=== PATIENT | male | born 1940 | race Caucasian/White ===

== ENCOUNTER 2020-11-28 12:25 | Observation (INO) ==
[2020-11-28 13:26] LABS: Basophils % 0.4 % (0.0-0.8); Eosinophils # 0.1 10*3/uL (0.0-0.87); Eosinophils % 1.1 % (0.00-10.9); Hematocrit 30.9 VOL% (42.0-52.0); Hemoglobin 10.7 GM/DL (14.0-18.0); Immature Granulocytes % 1.7 %; Immature Granulocytes Absolute 0.08 #; Lymphocytes # 0.7 10*3/uL (1.4-4.0); Lymphocytes % 14.6 % (21.2-54.2); Mean Corpuscular HGB Conc 34.6 GM/DL (32-36); Mean Corpuscular Volume 93.6 FL (87-102); Monocytes % 16.9 % (1.7-12.7); Neutrophils % 65.3 % (38.7-73.9); Platelet Count 243 T/CUMM (130-400); Red Cell Distribution Width 12.8 % (9.3-17.3); White Blood Count 4.7 T/CUMM (4-12)
[2020-11-28 13:37] LABS: Bilirubin,Urine Negative (Negative); Blood, Urine Negative (Negative); Glucose,Urine (UA) Negative (Negative); Ketones,Urine Negative (Negative); Nitrite,Urine Negative (Negative); Protein,Urine Negative; RBC,Urine 1 /HPF (0-4); Urine Appearance CLEAR (Clear); Urine Color Yellow (Yellow); Urine Specific Gravity 1.006 (1.001-1.035); Urine Urobilinogen < 2.0 EU/DL (0.2-1.0)
[2020-11-28 13:45] LABS: Albumin 2.9 G/DL (3.4-5.0); Bilirubin,Total 0.9 MG/DL (0.20-1.00); Calcium 8.3 MG/DL (8.5-10.1); Osmolality,Calculated 251.5 MOS/KG (273-304); Potassium 4.1 MMOL/L (3.5-5.1); Total Protein 6.4 G/DL (6.4-8.2)
[2020-11-28 13:58] LABS: INR 1.6; PT Patient Result 17.8 SECS (10.5-12.0); Partial Thromboplastin Time 41.7 SECS (23.9-33.8)
[2020-11-28 14:02] LABS: Lymphocytes 13 % (20-55)
[2020-11-28 14:05] LABS: Anisocytosis 1+
[2020-11-28 14:06] LABS: Macrocytosis 1+
[2020-11-28 14:07] LABS: Ovalocytes Few; Reactive Lymphocytes Slight
[2020-11-28 14:08] LABS: Platelet Estimate Normal
[2020-11-28 14:32] LABS: Segmented Neutrophils 72 % (50-85)
[2020-11-28 14:33] LABS: Total Cells Counted 100
[2020-11-28] MEDS ORDERED: GLUCAGON 1 MG VIAL IM PRN (16:07)
[2020-11-28] MEDS ORDERED: ONDANSETRON 4 MG/2 ML VIAL IV PRN (16:07)
[2020-11-28] MEDS ORDERED: ACETAMINOPHEN 325 MG TABLET PO PRN (16:07)
[2020-11-28] MEDS ORDERED: DEXTROSE 50% 25 GM/50 ML VIAL IV PRN (16:07)
[2020-11-28] MEDS: SODIUM CHLORIDE 0.9% 1,000 ML IV SCH (19:15)
[2020-11-29 05:35] LABS: Basophils % 0.2 % (0.0-0.8); Eosinophils # 0.1 10*3/uL (0.0-0.87); Hematocrit 30.1 VOL% (42.0-52.0); Hemoglobin 10.4 GM/DL (14.0-18.0); Immature Granulocytes % 2.4 %; Immature Granulocytes Absolute 0.12 #; Lymphocytes # 0.8 10*3/uL (1.4-4.0); Lymphocytes % 16.4 % (21.2-54.2); Mean Corpuscular HGB Conc 34.6 GM/DL (32-36); Mean Corpuscular Volume 93.5 FL (87-102); Platelet Count 252 T/CUMM (130-400); Red Blood Count 3.22 MC/CUMM (3.8-5.5); Red Cell Distribution Width 12.4 % (9.3-17.3); White Blood Count 4.9 T/CUMM (4-12)
[2020-11-29 06:03] LABS: Eosinophils 2 % (0-10); Hypochromasia 1+; Lymphocytes 17 % (20-55); Microcytosis 1+; Ovalocytes Slight; Platelet Estimate Adequate; Segmented Neutrophils 66 % (50-85); Total Cells Counted 100
[2020-11-29 06:07] LABS: Calcium 8.3 MG/DL (8.5-10.1); Osmolality,Calculated 249.6 MOS/KG (273-304); Potassium 3.9 MMOL/L (3.5-5.1)
[2020-11-29] MEDS: SODIUM CHLORIDE 0.9% 1,000 ML IV SCH (06:30)
[2020-11-29] MEDS ORDERED: FUROSEMIDE 40 MG/4 ML VIAL IV ONE (08:16)
[2020-11-29] MEDS ORDERED: hydrALAZINE 20 MG/1 ML VIAL IV PRN (08:17)
[2020-11-29] MEDS: RIVAROXABAN 10 MG TABLET PO SCH (09:23)
[2020-11-29] MEDS: PANTOPRAZOLE 40 MG TABLET PO SCH (09:23)
[2020-11-29] MEDS: amLODIPine 10 MG TABLET PO SCH (09:24)
[2020-11-29] MEDS ORDERED: PROMETHAZINE CODEINE PO PRN (13:37)
[2020-11-29] MEDS ORDERED: ALBUTEROL 2.5 MG/3 ML NEB RESP TX PRN (13:43)
[2020-11-29] MEDS: guaiFENesin/CODEINE 5 ML LIQUID PO PRN ×2 (14:06→18:15)
[2020-11-29] MEDS ORDERED: ZALEPLON 5 MG CAPSULE PO PRN (20:51)
[2020-11-30 06:24] LABS: Calcium 8.3 MG/DL (8.5-10.1); Osmolality,Calculated 249.6 MOS/KG (273-304); Potassium 3.6 MMOL/L (3.5-5.1)
[2020-11-30] MEDS ORDERED: FOLIC ACID 1 MG TABLET PO SCH (09:00)
[2020-11-30] MEDS ORDERED: LOSARTAN 50 MG TABLET PO SCH (09:00)
[2020-11-30] MEDS: PANTOPRAZOLE 40 MG TABLET PO SCH (09:16)
[2020-11-30] MEDS: amLODIPine 10 MG TABLET PO SCH (09:17)
[2020-11-30] MEDS: RIVAROXABAN 10 MG TABLET PO SCH (09:17)
[2020-11-30 11:43] VITALS: BP 116/61
== END 2020-11-30 14:18 | disposition home health service (06) ==
LOC: N.EDINP 12:25 → N.ED 12:25 → N.2E 16:18
PROVIDERS: ADMIT Internal Medicine; ATTEND Internal Medicine